=== PATIENT | female | born 1980 | race Caucasian/White ===

== ENCOUNTER 2024-06-11 02:59 | Day surgery (SDC) | payer BC, SELFPAY ==
--- NOTE | 2024-05-30 12:52 | PC.NURSE ---
Report to the Outpatient Waiting Room, entrance under the green pavilion located off [facility], at time ___6:15am____ on date ___[id number]____. Planned Procedure Time: 8:15am___.? Time changes happen often and if your time is changed the preop area will call you the afternoon before. - You and your visitor will be asked to self-screen and do not enter if you have any COVID symptoms. Please call surgeon if you need to reschedule. - A mask is optional within the hospital at this time. Patients may have clear liquids (water, carbonated beverages, clear teas, apple juice) until 3 hours prior to surgery with a maximum of 20 ounces. - No food from midnight until time of surgery and no smoking. This includes no chewing gum, candy or mints. Take only the following medications with a SIP of water on the morning of surgery: n/a DO NOT STOP ANY OF YOUR OTHER PRESCRIPTION MEDICATIONS PRIOR TO SURGERY EXCEPT THE FOLLOWING Medications to discontinue per physician Do not take metformin morning of surgery (taken for PCOS) Please no make-up, nail lithuanian, hairspray, perfume, deodorant, or body powder the day of surgery.? No jewelry (including any body piercings) or valuables the day of surgery, leave them at home.? Please take a shower or bath the night before, or the morning of, surgery with an antibacterial soap.? Wear comfortable, loose fitting clothing.? - Jewelry must be removed prior to entering the operating room.? Rings and piercings that are not removed may be cut off. - The hospital will not accept responsibility for valuables.? - Please leave all valuables, including medications, at home the day of surgery. If you are going home after surgery, a licensed local company intermodal truck driver must drive you home.? - NO public transportation without another adult if you receive anesthesia. - We recommend that an adult stay with you for 24 hours following discharge. - We also recommend that you do not drive, make important decision, drink alcoholic beverages, or take any drugs that were not prescribed by your health care provider for at least 24 hours after your discharge time. Hold all vitamins and supplements for 3 days per anesthesiologist. (Take your last vitamin D dose on 02-04-2025) Follow any additional instructions given to you from your surgeon. Telephone instructions given to __Patient (Masha) and asked if any additional questions and then verbalized understanding. Patient advised to call surgeon office or pre surgery nurse liaison [phone] if any additional questions.
[2024-05-30 13:00] VITALS: BMI 43.5
--- OUTSIDE RECORDS SUMMARY | 2024-06-11 03:03 | XMS_ITS | Clinical Summary ---
Author Organization [facility] [employer] Address [address] [place] [address] Care Team Providers Care Banquet Director Name Role Phone Masha Shah MD Primary Care Provider [phone] Source Comments [facility] [employer],non-owned Affiliates and Associated Physician Practices is amultiple site organization consisting of ambulatory clinics and hospital sitesin [place], [place], [place] and [place]. This disclosure is being madepursuant to the Care Everywhere program and may not contain all information available regarding this patient. Last updated 18.[facility] [employer] Allergies No known active allergies Medications * Be aware that medications may not be up to date on this document. Alwaysverify current medications with the patient. Medication Sig Dispensed Refills Start Date End Date Status oxyCODONE, immediate release, (Roxicodone) 5 MG tabletIndications :Right ovarian cyst Take 1 (one) tablet by mouth every 6 hours as needed 12 tablet 06/08/2023 Active Additional Information Patient not taking.Reported on 06/29/2023 ketorolac (Toradol) 10 MG tablet Take 1 (one) tablet by mouth every 6 hours as needed for Pain 12 tablet 06/08/2023 Active Additional Information Patient not taking.Reported on 06/29/2023 acetaminophen (Tylenol) 500 MG capsule Take 1 (one) capsule by mouth every 4 hours as needed for Fever or Pain 30 capsule 06/08/2023 Active Additional Information Patient not taking.Reported on 06/29/2023 acetaminophen (Tylenol) 325 MG tablet Take 2 (two) tablets by mouth every 6 hours as needed for Fever or Pain Maximum allowable Acetaminophen amount = 4 Grams (4000 mg) / 24 hours. 40 tablet 06/10/2023 Active Additional Information Patient not taking.Reported on 06/29/2023 ibuprofen (Motrin) 600 MG tablet Take 1 (one) tablet by mouth every 6 hours as needed for Pain 40 tablet 06/10/2023 Active Additional Information Patient not taking.Reported on 06/29/2023 Active Problems Problem Noted Date Diagnosed Date Right ovarian cyst 06/07/2023 Social History Tobacco Use Types Packs/Day Years Used Date Smoking Tobacco: Unknown PHQ-2 Answer Date Recorded Patient Health Questionnaire-2 Score 0 06/22/2023 Sex and Gender Information Value Date Recorded Sex Assigned at Not on file Gender Identity Not on file Sexual Orientation Not on file Last Filed Vital Signs Vital Sign Reading Time Taken Comments Blood Pressure 120/80 06/29/2023 1:41 PM HAND PROFILER Pulse 74 06/10/2023 5:17 PM [facility] PROF[facility] Temperature 36.8 C (98.2 F) 06/10/2023 1:55 PM [facility] PROF[facility]ER Respiratory Rate 20 06/10/2023 4:10 PM HAND PROFILER Oxygen Saturation 98% 06/10/2023 5:17 PM HAND PROFILER Inhaled Oxygen Concentration - - Weight 123.4 kg (272 lb) 06/29/2023 1:41 PM HAND PROFILER Height 167.6 cm (5' 6 ) 06/29/2023 1:41 PM HAND PROFILER Body Mass Index 43.9 06/29/2023 1:41 PM HAND PROFILER Plan of Treatment Health Maintenance Due Date Last Done Comments LIPID TESTING 1980 MAMMOGRAM 1980 PAP SMEAR 1980 HIV SCREENING 01/24/1995 HEPATITIS C SCREENING 01/20/1998 DTAP/TDAP/TD VACCINES (1 - Tdap) 01/24/1999 HEPATITIS B VACCINE (1 of 3 - 19+ 3-dose series) 01/24/1999 COVID-19 VACCINE ( - 2023-2 5 season) 2024 INFLUENZA VACCINE (#1) 2024 DEPRESSION SCREENING 05/02/2024 06/29/2023 SCREENING FOR DIABETES 06/07/2026 06/07/2023 ZOSTER VACCINE (1 of 2) 01/24/2030 HIB VACCINE Aged Out No longer eligi ble based on patient's age to complete this topic HPV VACCINE Aged Out No longer eligi ble based on patient's age to complete this topic MENINGOCOCCAL (Group B) VACCINE Aged Out No longer eligible based on patient's age to complete this topic MENINGOCOCCAL VACCINE Aged Out No mireya melissa eligible based on patient's age to complete this topic PNEUMOCOCCAL VACCINE Aged Out No long er eligible based on patient's age to complete this topic Procedures Procedure Name Priority Date/Time Associated Diagnosis Comments COMPREHENSIVE METABOLIC PANEL STAT 06/07/2023 8:57 PM HAND PROFILER from Last 3 Months or Most Recently Relevant to Health Maintenance Results * COMPREHENSIVE METABOLIC PANEL (06/07/2023 8:57 PM HAND PROFILER) [facility] Glucose 83 70 - 105 mg/dL 06/07/2023 9:16 PM [facility] Sodium 139 136 - 145 mmol/L 06/07/2023 9:16 PM [facility] Potassium 3.8 3.5 - 5.1 mmol/L 06/07/2023 9:16 PM [facility] Chloride 105 98 - 107 mmol/L 06/07/2023 9:16 PM [facility] CO2 23 22 - 29 mmol/L 06/07/2023 9:16 PM [facility] Calcium 9.1 8.4 - 10.4 mg/dL 06/07/2023 9:16 PM [facility] Anion Gap 11 6 - 16 mmol/L 06/07/2023 9:16 PM [facility] BUN 9 5.3 - 18.7 mg/dL 06/07/2023 9:16 PM [facility] Creatinine 0.77 0.57 - 1.11 mg/dL 06/07/2023 9:16 PM HAND PROFILER [facility] Alkaline Phosphatase 70 40 - 150 U/L 06/07/2023 9:16 PM HAND PROFILER [facility] ALT 22 0 - 55 U/L 06/07/2023 9:16 PM [facility] PROFILER [facility] AST 20 5 - 34 U/L 06/07/2023 9:16 PM [facility] Protein Total 8.0 6.4 - 8.3 gm/dL 06/07/2023 9:16 PM [facility] Albumin 4.1 3.4 - 5.0 gm/dL 06/07/2023 9:16 PM [facility] Bilirubin Total 0.8 0.2 - 1.2 mg/dL 06/07/2023 9:16 PM [facility] PROFILER [facility] eGFR by CKD-EPI >90 >=90 mL/min/1.7 3 m2 06/07/2023 9:16 PM [facility] PROFILER [facility] Blood BLOOD SPECIMEN / Unknown Venipuncture / Unknown 06/07/2023 8:57 PM HAND PROFILER 06/07/2023 8:57 PM [facility]ER Belkis Blum MD LAB - CHEMISTRY O RDERABLES [facility] [address] [place] [address] from Last 3 Months or Most Recently Relevant to Health Maintenance Advance Directives * Full Code (Latest Code Status on File) Date Activated Date Inactivated Comments 06/08/2023 12:44 AM 06/08/2023 2:07 PM Care Teams Banquet Director Relationship Specialty Start Date End Date Masha Shah MD [address] MATTHEW Anand [phone] PCP - General Family Medicine 06/29/23
--- OUTSIDE RECORDS SUMMARY | 2024-06-11 03:03 | XMS_ITS | Clinical Summary ---
Author Organization [facility] Address [address] [place] [address] Phone Care Team Providers Care Plant Electrical Engineer Name Role Phone Unavailable Primary Care Provider Unavailabl e Allergies No known active allergies Medications ketorolac tromethamine (TORADOL) 10 mg tablet Take 1 Tablet (10 mg) by mouth every 6 hours as needed for Pain. 15 Tablet 4 Active acetaminophen (TYLENOL) 500 mg tablet Take 2 Tablets (1,000 mg) by mouth every 6 hours as needed for Pain. 20 Tablet 4 Active ondansetron (ZOFRAN ODT) 4 mg Tablet, Rapid Dissolve Take 1 Tablet (4 mg) by mouth every 8 hours as needed for Nausea/Emesis . Dissolve tablet on top of tongue, then swallow with saliva. 20 Tablet 4 Active Encounters Date Type Department Care Team Description 06/05/2024 External Device Data [facility] ABSTRACTION Provider, Abstract 05/24/2024 External Device Data [facility]STRACTION Provider, Abstract 05/15/2024 External Device Data [facility]CTION Provider, Abstract 05/15/2024 External Device Data [facility] Provider, Abstract 05/08/2024 External Device Data [facility]CTION Provider, Abstract 04/17/2024 External Device Data [facility]CTION Provider, Abstract 04/16/2024 9:41 AM SALES CONSULTANT - 04/16/2024 1:04 PM SALES CONSULTANT Emergency [facility] Emergency Department [address] [place] [address] Uterine leiomyoma, unspecified location (Primary Dx) Discharge Disposition: Home or Self Care 04/16/2024 Travel from Last 3 Months Social History Tobacco Use Types Packs/Day Years Used Date Smoking Tobacco: Never Assessed Feeling Safe Answer Date Recorded Are you in a relationship wi th someone who hurts you emotionally and/or physically? No 04/16/2024 Comments Unknown Sex and Gender Information Value Date Recorded Sex Assigned at Not on file Legal Sex Female 9:32 AM SALES CONSULTANT Gender Identity Not on file Sexual Orientation Not on file Last Filed Vital Signs Vital Sign Reading Time Taken Comments Blood Pressure 161/101 04/16/2024 9:45 AM SALES CONSULTANT Pulse 87 04/16/2024 9:45 AM SALES CONSULTANT Temperature 36.9 C (98.5 F) 04/16/2024 9:34 AM SALES CONSULTANT Respiratory Rate 20 04/16/2024 9:45 AM SALES CONSULTANT Oxygen Saturation 99% 04/16/2024 9:45 AM SALES CONSULTANT Inhaled Oxygen Concentration - - Weight 113.4 kg (250 lb) 04/16/2024 9:34 AM SALES CONSULTANT Height 167.6 cm (5' 6 ) 04/16/2024 9:34 AM SALES CONSULTANT Body Mass Index 40.35 04/16/2024 9:34 AM SALES CONSULTANT Plan of Treatment Health Maintenance Due Date Last Done Comments Pre-Diabetes and Diabetes Screening 1980 DTAP/TDAP/TD VACCINES (1 - Tdap) 01/24/1999 HEPATITIS B VACCINES (1 of 3 - 19+ 3-dose series) 01/24/1999 CERVICAL CANCER SCREENING 01/24/2010 BREAST CANCER SCREENING 2020 INFLUENZA VACCINE (#1) 2023 HPV VACCINES Aged Out No longer eligi ble based on patient's age to complete this topic Procedures Procedure Name Priority Date/Time Associated Diagnosis Comments CT ABDOMEN PELVIS W CONTRAST Stat 04/16/2024 11:52 AM SALES CONSULTANT EXTRA TUBE (URINE CESAR) Stat 04/16/2024 10:50 AM SALES CONSULTANT URINALYSIS W/REFLEX MICROSCOPIC Stat 04/16/2024 10:50 AM SALES CONSULTANT LIPASE Stat 04/16/2024 9:40 AM SALES CONSULTANT HCG QUALITATIVE, SERUM Stat 9:40 AM SALES CONSULTANT EXTRA TUBE (SST/GOLD) Stat 04/16/2024 9:40 AM SALES CONSULTANT EXTRA TUBE Stat 04/16/2024 9:40 AM SALES CONSULTANT COMPREHENSIVE METABOLIC PANEL Stat 04/16/2024 9:40 AM SALES CONSULTANT CBC WITH DIFFERENTIAL Stat 04/16/2024 9:40 AM SALES CONSULTANT from Last 3 Months Results * CT ABDOMEN PELVIS W CONTRAST (04/16/2024 11:52 AM SALES CONSULTANT) Anatomical Region Laterality Modality Abdomen Computed Tomogra phy 04/16/2024 11:5 3 AM SALES CONSULTANT Impressions 04/16/2024 12:05 PM SALES CONSULTANT IMPRESSION: 1. No acute process identified in the abdomen or pelvis. 2. Uterine fibroids. Hepatic steatosis and splenomegaly. DICTATION LOCATION: Location [address] [place] [address] 04/16/2024 12:05 PM SALES CONSULTANT EXAMINATION: CT ABDOMEN PELVIS W CONTRAST DATE: 04/16/2024 11:52 AM HISTORY: Right sided abdominal pain, right flank pain. History of 18 cm right sided cyst; See Reason for Exam TECHNIQUE: CT of the abdomen and pelvis was performed following the uneventful administration of contrast (IOPAMIDOL 76 % INTRAVENOUS SOLUTION (MULTI-DOSE BULK PACK) Given:80 mL) according to standard protocol. The examination was performed with the adjustment of mA according to the patient size and/or the use of Iterative Reconstruction Technique. COMPARISON: No prior study is available for comparison at the time of this dictation. FINDINGS: The aorta is normal in caliber. The visible lung bases are clear. The heart size is normal. The liver is diffusely hypoattenuating consistent with diffuse hepatic steatosis. Otherwise the liver enhances homogeneously. The gallbladder appears normal. The bile ducts are nondilated. The spleen is enlarged and enhances homogeneously. The pancreas and adrenal glands are normal. A renal cyst is noted. There is no evidence of renal calculus or hydronephrosis. The distal esophagus and stomach appear normal. There is no evidence of bowel wall thickening or obstruction. The appendix appears normal. No free air or free fluid is identified within the abdomen. There is no abdominopelvic lymphadenopathy. There is a fat-containing umbilical hernia. The urinary bladder appears normal. No free fluid is seen in the pelvis. There are large uterine fibroids. No suspicious bone lesion is seen. No acute fracture is identified. Degenerative changes are noted in the spine. Procedure Note Duong Jean Baptiste MD - 04/16/2024 EXAMINATION: CT ABDOMEN PELVIS W CONTRAST DATE: 04/16/2024 11:52 AM HISTORY: Right sided abdominal pain, right flank pain. History of 18 cm right sided cyst; See Reason for Exam TECHNIQUE: CT of the abdomen and pelvis was performed following the uneventful administration of contrast (IOPAMIDOL 76 % INTRAVENOUS SOLUTION (MULTI-DOSE BULK PACK) Given:80 mL) according to standard protocol. The examination was performed with the adjustment of mA according to the patient size and/or the use of Iterative Reconstruction Technique. COMPARISON: No prior study is available for comparison at the time of this dictation. FINDINGS: The aorta is normal in caliber. The visible lung bases are clear. The heart size is normal. The liver is diffusely hypoattenuating consistent with diffuse hepatic steatosis. Otherwise the liver enhances homogeneously. The gallbladder appears normal. The bile ducts are nondilated. The spleen is enlarged and enhances homogeneously. The pancreas and adrenal glands are normal. A renal cyst is noted. There is no evidence of renal calculus or hydronephrosis. The distal esophagus and stomach appear normal. There is no evidence of bowel wall thickening or obstruction. The appendix appears normal. No free air or free fluid is identified within the abdomen. There is no abdominopelvic lymphadenopathy. There is a fat-containing umbilical hernia. The urinary bladder appears normal. No free fluid is seen in the pelvis. There are large uterine fibroids. No suspicious bone lesion is seen. No acute fracture is identified. Degenerative changes are noted in the spine. IMPRESSION: 1. No acute process identified in the abdomen or pelvis. 2. Uterine fibroids. Hepatic steatosis and splenomegaly. DICTATION LOCATION: [address] Radha Collado NP CT ORDERABLES Final Res ult * EXTRA TUBE (URINE CESAR) (04/16/2024 10:50 AM SALES CONSULTANT) Urine URINE SPECIMEN OBTAINED BY CLEAN CATCH PROCEDURE / Unknown Collection / Unknown 04/16/2024 10:50 AM SALES CONSULTANT 04/16/2024 10:57 AM SALES CONSULTANT us Protocol [facility] Emergency MD URINE ORDERABLES Shoshana jimenez Result [facility] CLIA# [id number] [place] [address] * (ABNORMAL) URINALYSIS WITH REFLEX MICROSCOPIC (04/16/2024 10:50 AM SALES CONSULTANT) COLOR UA Yellow Pale to Dark Yellow 04/16/2024 11:16 AM [facility] [employer] [facility] CLARITY UA Slightly Cloudy(A) Clear 04/16/2024 11:16 AM [facility] SPECIFIC GRAVITY UA 1.023 1.003 - 1.035 04/16/2024 11:16 AM [facility] [employer] [facility] PH UA 7.0 5.0 - 8.0 04/16/2024 11:16 AM [facility] [employer] [facility] LEUKOCYTE ESTERASE UA Negative Negative 04/16/2024 11:16 AM [facility] [employer] [facility] NITRITE UA Negative Negative 04/16/2024 11:16 AM [facility] [employer] [facility] PROTEIN UA 1+(A) Negative 04/16/2024 11:16 AM [facility] [employer] [facility] GLUCOSE UA Negative Negative 04/16/2024 11:16 AM [facility] [employer] [facility] KETONES UA Negative Negative 04/16/2024 11:16 AM [facility] [employer] [facility] UROBILINOGEN UA Normal <2.0 mg/dL 11:16 AM [facility] [employer] [facility] BILIRUBIN UA Negative Negative 04/16/2024 11:16 AM [facility] [employer] [facility] BLOOD UA Negative Negative 04/16/2024 11:16 AM [facility] [employer] [facility] WBC UA 0-2 0 - 2 /hpf 04/16/2024 11:16 AM [facility] [employer] [facility] RBC UA 0-2 0 - 2 /hpf 04/16/2024 11:16 AM SALES CONSULTANT [facility] [employer] [facility] BACTERIA UA 1+(A) Negative /hpf 04/16/2024 11:16 AM SALES CONSULTANT [facility] EPITHELIAL CELLS, URINE 0-5 0 - 5 /hpf 04/16/2024 11:16 AM SALES CONSULTANT [facility] HYALINE CAST None Seen None Seen, 0-2 /lpf 04/16/2024 11:16 AM SALES CONSULTANT [facility] Urine URINE SPECIMEN OBTAINED BY CLEAN CATCH PROCEDURE / Unknown Collection / Unknown 04/16/2024 10:50 AM SALES CONSULTANT 04/16/2024 10:57 AM SALES CONSULTANT us Protocol [facility] Emergency MD URINE ORDERABLES Shoshana l Result [facility] CLIA# [id number] [place] [address] * EXTRA TUBE (SST/GOLD) (04/16/2024 9:40 AM SALES CONSULTANT) Blood Venipuncture / Unknown 04/16/2024 9:40 AM SALES CONSULTANT 04/16/2024 9:47 AM SALES CONSULTANT us Protocol [facility] Emergency CHEMISTRY ORDERABLES Final Result Performing Organization Address [facility]/ZIP Co de Phone Number [facility] CLIA# [id number] [place] [address] * HCG QUALITATIVE, BLOOD (04/16/2024 9:40 AM SALES CONSULTANT) HCG QUAL, BLOOD Negative Negative, Indeterminate 04/16/2024 10:50 AM SALES CONSULTANT [facility] Blood Venipuncture / Unknown 04/16/2024 9:40 AM SALES CONSULTANT 04/16/2024 9:47 AM SALES CONSULTANT us Radha Collado TRANSFER COORDINATOR CHEMISTRY ORDERABLES Shoshana l Result [facility] CLIA# [id number] [place] [address] * (ABNORMAL) CBC WITH DIFFERENTIAL (04/16/2024 9:40 AM SALES CONSULTANT) [facility] WBC 10.7(H) 4.0 - 9.8 K/uL 04/16/2024 9:46 AM SALES CONSULTANT [facility] RBC 5.06(H) 3.90 - 4.90 M/uL 04/16/2024 9:46 AM [facility] HEMOGLOBIN 12.7 11.8 - 14.8 g/dL 04/16/2024 9:46 AM SALES CONSULTANT [facility] HEMATOCRIT 40.3 35.5 - 44.0 % 04/16/2024 9:46 AM SALES CONSULTANT [facility] MCV 79.6(L) 82.0 - 99.0 fL 04/16/2024 9:46 AM SALES CONSULTANT [facility] MCH 25.1(L) 27.2 - 32.6 pg 04/16/2024 9:46 AM [facility] [employer] [facility] MCHC 31.5 31.5 - 35.5 g/dL 04/16/2024 9:46 AM SALES CONSULTANT [facility] [employer] [facility] RDW 14.6(H) 11.5 - 14.5 % 04/16/2024 9:46 AM [facility] [employer] [facility] RDW-STDEV 42.0 37.1 - 48.7 fL 04/16/2024 9:46 AM SALES CONSULTANT [facility] PLATELETS 294 140 - 350 K/uL 04/16/2024 9:46 AM SALES CONSULTANT [facility] MPV 9.6 9.3 - 12.4 fL 04/16/2024 9:46 AM SALES CONSULTANT [facility] NEUTROPHILS 83 % 04/16/2024 9:46 AM SALES CONSULTANT [facility] LYMPHOCYTES 12 % 04/16/2024 9:46 AM SALES CONSULTANT [facility] MONOCYTES 3 % 04/16/2024 9:46 AM SALES CONSULTANT [facility] EOSINOPHILS 1 % 04/16/2024 9:46 AM SALES CONSULTANT [facility] BASOPHILS 1 % 04/16/2024 9:46 AM SALES CONSULTANT [facility] IMMATURE GRANULOCYTES 0 % 04/16/2024 9:46 AM SALES CONSULTANT [facility] NEUTROPHIL ABSOLUTE 8.90(H) 1.90 - 7.00 K/uL 04/16/2024 9:46 AM SALES CONSULTANT [facility] LYMPHOCYTE ABSOLUTE 1.24 0.70 - 4.50 K/uL 04/16/2024 9:46 AM SALES CONSULTANT [facility] MONOCYTE ABSOLUTE 0.33 0.10 - 1.30 K/uL 04/16/2024 9:46 AM SALES CONSULTANT [facility] EOSINOPHIL ABSOLUTE 0.11 0.00 - 0.70 K/uL 04/16/2024 9:46 AM SALES CONSULTANT [facility] - [facility] BASOPHILS ABSOLUTE 0.08 0.00 - 0.20 K/uL 04/16/2024 9:46 AM SALES CONSULTANT [facility] IMMATURE GRANULOCYTES ABSOLUTE 0.04(H) 0.00 - 0.03 K/uL 04/16/2024 9:46 AM SALES CONSULTANT [facility] Blood Venipuncture / Unknown 04/16/2024 9:40 AM SALES CONSULTANT 04/16/2024 9:46 AM SALES CONSULTANT Protocol [facility] Emergency MD HEMATOLOGY ORDERABLES Final Result [facility] CLIA# [id number] [place] [address] * LIPASE (04/16/2024 9:40 AM SALES CONSULTANT) LIPASE 17 13 - 60 U/L 04/16/2024 10:14 AM SALES CONSULTANT [facility] Blood Venipuncture / Unknown 04/16/2024 9:40 AM SALES CONSULTANT 04/16/2024 9:43 AM SALES CONSULTANT us Radha Collado TRANSFER COORDINATOR CHEMISTRY ORDERABLES Shoshana l Result [facility] CLIA# [id number] [place] [address] * (ABNORMAL) COMPREHENSIVE METABOLIC PANEL (04/16/2024 9:40 AM SALES CONSULTANT) [facility] SODIUM 142 136 - 145 mmol/L 04/16/2024 10:14 AM [facility] [employer] [facility] POTASSIUM 4.4 3.4 - 5.1 mmol/L 04/16/2024 10:14 AM [facility] [employer] [facility] CHLORIDE 107 98 - 107 mmol/L 04/16/2024 10:14 AM [facility] [employer] [facility] CO2 20(L) 22 - 29 mmol/L 04/16/2024 10:14 AM [facility] [employer] [facility] CALCIUM 9.3 8.6 - 10.4 mg/dL 04/16/2024 10:14 AM [facility] [employer] [facility] BUN 13 6 - 20 mg/dL 04/16/2024 10:14 AM [facility] [employer] [facility] CREATININE 0.78 0.51 - 0.95 mg/dL 04/16/2024 10:14 AM [facility] [employer] [facility] GLUCOSE 136(H) 74 - 99 mg/dL 04/16/2024 10:14 AM [facility] [employer] [facility] TOTAL PROTEIN 7.6 6.3 - 8.7 g/dL 04/16/2024 10:14 AM [facility] [employer] [facility] ALBUMIN 4.2 3.5 - 5.2 g/dL 04/16/2024 10:14 AM [facility] [employer] [facility] BILIRUBIN TOTAL 0.4 0.3 - 1.2 mg/dL 04/16/2024 10:14 AM [facility] [employer] [facility] ALKALINE PHOSPHATASE 93 40 - 150 U/L 04/16/2024 10:14 AM [facility] [employer] [facility] AST 19 0 - 33 U/L 04/16/2024 10:14 AM [facility] [employer] [facility] ALT 13 0 - 33 U/L 04/16/2024 10:14 AM [facility] [employer] [facility] GFR >60 >=60 mL/min/1.7 3 sq meter 04/16/2024 10:14 AM [facility] Comment:eGFR calculated with 2020 CKD-EPI equation. Vegetarian diet, extremely high or low muscle mass, and may affect results. Cystatin C with Glomerular Filtration Rate is a suitable alternative for these patients. ANION GAP 15 8 - 16 mmol/L 04/16/2024 10:14 AM SALES CONSULTANT [facility] Blood Venipuncture / Unknown 04/16/2024 9:40 AM SALES CONSULTANT 04/16/2024 9:43 AM SALES CONSULTANT us Protocol [facility] Emergency MD CHEMISTRY ORDERABLES Final Result [facility] CLIA# [id number] [place] [address] from Last 3 Months Insurance [facility] [employer] [facility]
--- OUTSIDE RECORDS SUMMARY | 2024-06-11 03:03 | XMS_ITS | Encounter Summary ---
Author Organization [facility] Address [address] [place] [address] Care Team Providers Care In Service Educator Name Role Phone Masha Shah MD Primary Care Provider [phone] Reason for Visit * Reason Onset Date Comments Post-Op 06/13/2023 Appointment 06/13/2023 Encounter Details Date Type Department Care Team (Late st Contact Info) Description 06/13/2023 Telephone [facility] - SENIOR SYSTEMS ARCHITECT [address] [place] [address] Lottie Mancera MD [address] [place] [address] Post-Op; Appointment Social History Tobacco Use Types Packs/Day Years Used Date Smoking Tobacco: Never Assessed Sex and Gender Information Value Date Recorded Sex Assigned at Not on file Gender Identity Not on file Sexual Orientation Not on file documented as of this encounter Miscellaneous Notes * Telephone Encounter - Radha Clarke - 06/13/2023 8:56 AM CST Pt is calling to schedule her post op visit with Dr. Mancera. Pt had surgery on 06.10.23. [employer] documented in this encounter Plan of Treatment Not on file documented as of this encounter Visit Diagnoses Not on filedocumented in this encounter Care Teams In Service Educator Relationship Specialty Start Date End Date Masha Shah MD [address] [place] [address] MATTHEW Anand [phone] PCP - General Family Medicine 06/29/23 documented as of this encounter
--- OUTSIDE RECORDS SUMMARY | 2024-06-11 03:03 | XMS_ITS | Referral Summary ---
Author Organization [facility] Address [address] [place] [address] Care Team Providers Care Smoke Eater Name Role Phone Masha Shah MD Primary Care Provider [phone] Source Comments [facility],non-owned Affiliates and Associated Physician Practices is amultiple site organization consisting of ambulatory clinics and hospital sitesin [place], [place], [place] and [place]. This disclosure is being madepursuant to the Care Everywhere program and may not contain all information available regarding this patient. Last updated 18.[facility] Allergies No known active allergies Medications * [...] Comments Blood Pressure 120/80 06/29/2023 1:41 PM OIL TREATER Pulse 74 06/10/2023 5:17 PM OIL TREATER Temperature 36.8 C (98.2 F) 06/10/2023 1:55 PM OIL TREATER Respiratory Rate 20 06/10/2023 4:10 PM OIL TREATER Oxygen Saturation 98% 06/10/2023 5:17 PM OIL TREATER Inhaled Oxygen Concentration - - Weight 123.4 kg (272 lb) 06/29/2023 1:41 PM OIL TREATER Height 167.6 cm (5' 6 ) 06/29/2023 1:41 PM OIL TREATER Body Mass Index 43.9 06/29/2023 1:41 PM OIL TREATER Plan of Treatment Not on file Procedures Procedure Name Priority Date/Time Associated Diagnosis Comments COMPREHENSIVE METABOLIC PANEL STAT 06/07/2023 8:57 PM OIL TREATER from Last 3 Months or Most Recently Relevant to Health Maintenance Results * COMPREHENSIVE METABOLIC PANEL (06/07/2023 8:57 PM OIL TREATER) Pathologist [facility] Glucose 83 70 - 105 mg/dL 06/07/2023 9:16 PM OIL TREATER [facility] Sodium 139 136 - 145 mmol/L 06/07/2023 9:16 PM OIL TREATER [facility] Potassium 3.8 3.5 - 5.1 mmol/L 06/07/2023 9:16 PM OIL TREATER [facility] Chloride 105 98 - 107 mmol/L 06/07/2023 9:16 PM OIL TREATER [facility] CO2 23 22 - 29 mmol/L 06/07/2023 9:16 PM OIL TREATER [facility] Calcium 9.1 8.4 - 10.4 mg/dL 06/07/2023 9:16 PM OIL TREATER [facility] Anion Gap 11 6 - 16 mmol/L 06/07/2023 9:16 PM OIL TREATER [facility] BUN 9 5.3 - 18.7 mg/dL 06/07/2023 9:[address] [facility] Creatinine 0.77 0.57 - 1.11 mg/dL 06/07/2023 9:16 PM OIL TREATER [facility] Alkaline Phosphatase 70 40 - 150 U/L 06/07/2023 9:16 PM OIL TREATER [facility] ALT 22 0 - 55 U/L 06/07/2023 9:16 PM OIL TREATER [facility] AST 20 5 - 34 U/L 06/07/2023 9:[address] [facility] Protein Total 8.0 6.4 - 8.3 gm/dL 06/07/2023 9:[address] [facility] Albumin 4.1 3.4 - 5.0 gm/dL 06/07/2023 9:[address] [facility] Bilirubin Total 0.8 0.2 - 1.2 mg/dL 06/07/2023 9:[address] [facility] eGFR by CKD-EPI >90 >=90 mL/min/1.7 3 m2 06/07/2023 9:[address] [facility] Blood BLOOD SPECIMEN / Unknown Venipuncture / Unknown 06/07/2023 8:57 PM OIL TREATER 06/07/2023 8:57 PM OIL TREATER Belkis Blum MD LAB - CHEMISTRY O RDERABLES [facility] [address] [place] [address] from Last 3 Months or Most Recently Relevant to Health Maintenance Advance Directives * Full Code (Latest Code Status on File) Date Activated Date Inactivated Comments 06/08/2023 12:44 AM 06/08/2023 2:07 PM Care Teams Smoke Eater Relationship Specialty Start Date End Date Masha Shah MD [address] [place] [id number] PCP - General Family Medicine 06/29/23
--- OUTSIDE RECORDS SUMMARY | 2024-06-11 03:03 | XMS_ITS | Patient Health Summary ---
Author Organization [facility] Address [address] [place] [address] Care Team Providers Care Truck Driving Instructor Name Role Phone Masha Shah MD Primary Care Provider [phone] [facility],non-owned Affiliates and Associated Physician Practices is amultiple site organization consisting of ambulatory clinics and hospital sitesin [place], [place], [place] and [place]. This disclosure is being madepursuant to the Care Everywhere program and may not contain all information available regarding this patient. Last updated 18.[facility] Allergies No known active allergies Medications * Be aware that medications may not be up to date on this document. Alwaysverify current medications with the patient. * oxyCODONE, immediate release, (Roxicodone) 5 MG tablet(Started 06/08/2023) Take 1 (one) tablet by mouth every 6 hours as needed * ketorolac (Toradol) 10 MG tablet(Started 06/08/2023) Take 1 (one) tablet by mouth every 6 hours as needed for Pain * acetaminophen (Tylenol) 500 MG capsule(Started 06/08/2023) Take 1 (one) capsule by mouth every 4 hours as needed for Fever or Pain * acetaminophen (Tylenol) 325 MG tablet(Started 06/10/2023) Take 2 (two) tablets by mouth every 6 hours as needed for Fever or Pain Maximum allowable Acetaminophen amount = 4 Grams (4000 mg) / 24 hours. * ibuprofen (Motrin) 600 MG tablet(Started 06/10/2023) Take 1 (one) tablet by mouth every 6 hours as needed for Pain Active Problems Problem Noted Date Diagnosed Date [...] Comments Blood Pressure 120/80 06/29/2023 1:41 PM HEALTH COMMUNICATIONS SPECIALIST Pulse 74 06/10/2023 5:17 PM HEALTH COMMUNICATIONS SPECIALIST Temperature 36.8 C (98.2 F) 06/10/2023 1:55 PM HEALTH COMMUNICATIONS SPECIALIST Respiratory Rate 20 06/10/2023 4:10 PM HEALTH COMMUNICATIONS SPECIALIST Oxygen Saturation 98% 06/10/2023 5:17 PM HEALTH COMMUNICATIONS SPECIALIST Inhaled Oxygen Concentration - - Weight 123.4 kg (272 lb) 06/29/2023 1:41 PM HEALTH COMMUNICATIONS SPECIALIST Height 167.6 cm (5' 6 ) 06/29/2023 1:41 PM HEALTH COMMUNICATIONS SPECIALIST Body Mass Index 43.9 06/29/2023 1:41 PM HEALTH COMMUNICATIONS SPECIALIST Procedures * CARDIAC RHYTHM STRIP ORDER(Performed 06/14/2023) * PATHOLOGY TISSUE EXAM (STL)(Performed 06/10/2023) Performed for Diagnosis unknown * CYTOLOGY NON-DIRECTOR EQUIPMENT PANEL (STL)(Performed 06/10/2023) Performed for Diagnosis unknown * ENDOTRACHEAL TUBE NOTE(Performed 06/10/2023) * FL LAP,DIAGNOSTIC ABDOMEN(Performed 06/10/2023) Performed for Diagnosis unknown * HCG URINE QUAL POCT NOTIFICATION(Performed 06/10/2023) Performed for Pre-op examination * TYPE + SCREEN PANEL(Performed 06/10/2023) Performed for Pre-op examination * HCG URINE QUALITATIVE - POCT (IP) INTERFACED(Performed 06/10/2023) * CT OUTSIDE CONSULTATION(Performed 06/08/2023) Performed for Right ovarian cyst * CANCER ANTIGEN (CA) 19-9(Performed 06/07/2023) * CANCER ANTIGEN (CA)125 BLOOD(Performed 06/07/2023) * HCG BETA BLOOD QUANTITATIVE(Performed 06/07/2023) * CBC W AUTO DIFFERENTIAL(Performed 06/07/2023) * COMPREHENSIVE METABOLIC PANEL(Performed 06/07/2023) * TYPE + SCREEN PANEL(Performed 06/07/2023) * CEA BLOOD(Performed 06/07/2023) Results * CARDIAC RHYTHM STRIP ORDER (06/14/2023 5:13 PM HEALTH COMMUNICATIONS SPECIALIST) Narrative 06/14/2023 5:13 PM HEALTH COMMUNICATIONS SPECIALIST Ordered by an unspecified provider. Scanned Document CARDIAC SERVICES ORD ERABLES * PATHOLOGY TISSUE EXAM (STL) (06/10/2023 1:08 PM HEALTH COMMUNICATIONS SPECIALIST) Case Report Surgical Pathology Report Case: [id number] Authorizing Provider: Lottie Mancera MD Collected: 06/10/2023 01:08 PM Ordering Location: [facility] Received: 06/10/2023 02:10 PM Pathologist: Nuria Humphreys MD Specimen: Ovary 06/13/2023 9:03 AM HEALTH COMMUNICATIONS SPECIALIST [facility] Final Diagnosis Ovary, right, oophorectomy - Serous cystadenoma Fallopian tube, right, salpingectomy - No histopathologic abnormality 06/13/2023 9:03 AM HEALTH COMMUNICATIONS SPECIALIST [facility] Clinical History The patient is a 43-year-old woman with a pelvic mass. Operative procedure: right oophorectomy. 06/13/2023 9:03 AM HEALTH COMMUNICATIONS SPECIALIST [facility] Gross Description The specimen is identified with patient's name and date of . Received in formalin, specimen A, ovary is a fragmented cyst lining, the largest fragment is 17.0 x 5.0 x 2.0 cm and the total tissue aggregates to 17.0 x 8.0 x 2.0 cm. There is a fragment of possible fallopian tube, 7.0 cm long and 0.5 cm in diameter with possible fimbria. The tube serosa is purple-jefferson and congested with paratubal cysts. Sectioning shows unremarkable cut surfaces. The surface of the cyst lining pink-jefferson jefferson to white-jefferson, glistening with focal congestion. Additionally, there are multiloculated cysts with clear, thin fluid within the wall. The cyst lining is pink-jefferson with fibrous adhesions and focal yellow-jefferson exudate less than 5% of the surface. Possible ovarian parenchyma, 1.0 x 0.5 cm, is identified and is white-jefferson homogenous. Customer Service Sales Associate sections are submitted as follows: A1-tube, A2-possible ovary, A3-A8-cyst lining (A3-cystic area, A4-with yellow-jefferson exudate). RB 06/13/2023 9:03 AM [facility] Microscopic Description Microscopic examination substantiates the above diagnosis. 06/13/2023 9:03 AM [facility] Pathologist Location at [facility] 06/13/2023 9:03 AM [facility] Disclaimer All histochemical and/or immunohistochemical results are interpreted with controls that demonstrate appropriate staining reactions before reporting results. Note on use of immunocytochemistry reagents: This test was developed and its performance characteristic determined by [facility], Department of Laboratory Medicine. It has not been cleared or approved by the U.S. Food and Drug Administration (FDA). The FDA has determined that such clearance or approval is not necessary. The test is used for clinical purpose. It should not be regarded as investigational or for research. This laboratory is certified to perform high complexity testing. The performance characteristics of the IHC/RIZWAN assays have been validated on formalin-fixed paraffin embedded tissues only. The assays have not been validated on decalcified tissues. Results should be interpreted with caution. 06/13/2023 9:03 AM [facility] Embedded Images 06/13/2023 9:03 AM [facility] Pathology/Cytolo gy ENTIRE OVARY / Unknown 06/10/2023 1:08 PM HEALTH COMMUNICATIONS SPECIALIST 06/10/2023 2:10 PM HEALTH COMMUNICATIONS SPECIALIST Comment:Pre-op diagnosis: Diagnosis unknown [R69] Lottie Mancera MD LAB - PATHOLOGY/CYTO LOGY ORDERABLES Performing Organization Address City/State/[facility] Co de Phone Number [facility] [address] [place] [address] [phone] * CYTOLOGY NON-DIRECTOR EQUIPMENT PANEL (STL) (06/10/2023 12:38 PM HEALTH COMMUNICATIONS SPECIALIST) Case Report Cytology Non Inspecting Supervisor Report Case: [id number] Authorizing Provider: Lottie Mancera MD Collected: 06/10/2023 12:38 PM Ordering Location: [facility] Received: 06/10/2023 02:14 PM Pathologist: Truong Oliva MD Specimen: Pelvic Washings 06/13/2023 9:26 AM HEALTH COMMUNICATIONS SPECIALIST [facility] Final Diagnosis Pelvic washing: - Sparse bland mesothelium - No carcinoma identified 06/13/2023 9:26 AM [facility] Clinical History Right ovarian cyst 06/13/2023 9:26 AM [facility] Gross Description 45 mL of clear fluid is received. A Pap-stained ThinPrep slide and H&E-stained cell block sections are produced. GRW 06/13/2023 9:26 AM [facility] Microscopic Description In a Pap-stained ThinPrep slide as well as H&E-stained cell block sections, there are scattered mesothelial cells that appear somewhat suboptimally preserved. No large cohesive aggregates of malignant-appearing epithelium are identified. 06/13/2023 9:26 AM [facility] Pathologist Location at [facility] 06/13/2023 9:26 AM [facility] Disclaimer All histochemical and/or immunohistochemical results are interpreted with controls that demonstrate appropriate staining reactions before reporting results. Note on use of immunocytochemistry reagents: This test was developed and its performance characteristic determined by [facility], Department of Laboratory Medicine. It has not been cleared or approved by the U.S. Food and Drug Administration (FDA). The FDA has determined that such clearance or approval is not necessary. The test is used for clinical purpose. It should not be regarded as investigational or for research. This laboratory is certified to perform high complexity testing. The performance characteristics of the IHC/RIZWAN assays have been validated on formalin-fixed paraffin embedded tissues only. The assays have not been validated on decalcified tissues. Results should be interpreted with caution. 06/13/2023 9:26 AM [facility] Embedded Images 06/13/2023 9:26 AM [facility] Pathology/Cytolo gy SPECIMEN OBTAINED BY PERITONEAL LAVAGE / Unknown 06/10/2023 12:38 PM HEALTH COMMUNICATIONS SPECIALIST 06/10/2023 2:14 PM HEALTH COMMUNICATIONS SPECIALIST Comment:Pre-op diagnosis: Diagnosis unknown [R69] Lottie Mancera MD LAB - PATHOLOGY/CYTO LOGY ORDERABLES [facility] [address] [place] [address] * ETT LINE PERFORMABLE (06/10/2023 12:23 PM HEALTH COMMUNICATIONS SPECIALIST) Narrative Kvng Fernando TRAMAINE Rey - 06/10/2023 12:23 PM HEALTH COMMUNICATIONS SPECIALIST Kvng Fernando TRAMAINE Rey 06/10/2023 12:24 PM Endotracheal Tube Placement: Patient Location: OR. Intubation Event Date/Time: 06/10/2023 12:12 PM Procedure: intubation ([id number]). Procedure Section: Sedation: under general anesthesia. Indications for Airway Management: anesthesia Induction: standard IV Patient Position: sniffing Mask Ventilation: easy. Blade Type: Video (glidescope size3) Blade Size: 3 Laryngoscopy View: grade 1 (full cords) Intubation Adjuncts: stylet Tube: endotracheal tube Placement: oral Measured From: lips Cuff Inflated With: air Number of Attempts: 1. Placement Verified By: direct visualization, bilateral breath sounds, CO2 monitor and chest auscultation CXR Findings: ETT in proper place. Tube secured with: adhesive tape. Dentition unchanged? Yes Difficult Airway? No. Procedure Start Time: 06/10/2023 12:12 PM. Staff Section Anesthesia Provider: Fernando Calderon APRN-CRNA, Performed the procedure Provider #1: Darren Li DO. Additional Comments: atraumatic, teeth lips gums at baseline. Darren Li DO GENERAL ANESTHESIA O RDERABLES * HCG URINE QUAL POCT NOTIFICATION (06/10/2023 10:01 AM HEALTH COMMUNICATIONS SPECIALIST) Comment Notification Label Only - See Separate Report 06/10/2023 10:01 AM HEALTH COMMUNICATIONS SPECIALIST [facility] Urine URINE / Unknown 8:38 AM HEALTH COMMUNICATIONS SPECIALIST Lottie Mancera MD LAB - URINALYSIS ORD ERABLES [facility] [address] [place] [address] * TYPE + SCREEN PANEL (06/10/2023 9:17 AM HEALTH COMMUNICATIONS SPECIALIST) Only the most recent of2 resultswithin the time period is included. ABO Rh A POS 06/10/2023 10:11 AM HEALTH COMMUNICATIONS SPECIALIST [facility] Comment:History checked. Antibody Screen NEG 10:11 AM HEALTH COMMUNICATIONS SPECIALIST [facility] Blood Bank BLOOD SPECIMEN / Unknown Venipuncture / Unknown 06/10/2023 9:17 AM HEALTH COMMUNICATIONS SPECIALIST 06/10/2023 9:23 AM HEALTH COMMUNICATIONS SPECIALIST Lottie Mancera MD LAB - BLOOD BANK ORD ERABLES Performing Organization Address City/[facility] Co de Phone Number [facility] [address] [place], [place] [id number] [place] [address] * HCG URINE QUALITATIVE - POCT (IP) INTERFACED (06/10/2023 8:52 AM HEALTH COMMUNICATIONS SPECIALIST) Pathologist [facility] [place] HCG Qual Urine Negative Negative 06/10/2023 8:58 AM HEALTH COMMUNICATIONS SPECIALIST [facility] Urine URINE / Unknown 06/10/2023 8 :52 AM HEALTH COMMUNICATIONS SPECIALIST 06/10/2023 8:58 AM HEALTH COMMUNICATIONS SPECIALIST Lottie Mancera MD LAB - POINT OF CARE ORDERABLES Performing Organization Address [facility] Co de Phone Number [facility] [address] [place] [address] * CT OUTSIDE CONSULTATION (06/08/2023 8:44 AM HEALTH COMMUNICATIONS SPECIALIST) Anatomical Region Laterality Modality Computed Tomogra phy 06/08/2023 10:5 2 AM HEALTH COMMUNICATIONS SPECIALIST Narrative 06/08/2023 1:00 PM HEALTH COMMUNICATIONS SPECIALIST PROCEDURE: CT OUTSIDE CONSULTATION, DATE/TIME OF EXAM: 06/08/2023 8:45 AM, LOCATION [facility] INDICATION: N83.201: Unspecified ovarian cyst, right side ADDITIONAL CLINICAL INFORMATION: Ordering Provider Reason For Exam: Technologist Note: Additional: COMPARISON: None. TECHNIQUE: CT of the abdomen and pelvis was performed following the uneventful administration of 100 mL of Isovue 370 intravenous contrast according to standard protocol. Findings: Lower Chest: Normal. Liver: There is fatty enlargement of the liver. No focal hepatic lesion is seen. The hepatic and portal veins enhance normally. Gallbladder and Bile Ducts: Normal. Spleen: The spleen is enlarged and measures approximately 15.4 cm in coronal dimensions. No focal splenic lesion is seen. Pancreas: Normal. Adrenals: Normal. Kidneys: There is a hypodense lesion in the upper pole of the left kidney suggesting a renal cyst. This has fluid attenuation on postcontrast imaging. The kidneys and visualized ureters and bladder are otherwise normal. Gastrointestinal: The stomach and visualized loops of large and small bowel are unremarkable. Normal appendix. Mesentery/Peritoneum/Retroperitoneum: Small periaortic retroperitoneal and pelvic lymph nodes are present without significant adenopathy. There are small mesenteric cysts with mild soft tissue stranding in the root of the small bowel mesentery. Reproductive Organs: The uterus is enlarged and measures approximately 16.4 cm in sagittal dimensions and 11.7 cm in anterior posterior dimensions. There are complex and partially enhancing lesions within the left body of the uterus, lower uterine segment, as well as pedunculated subserosal fibroids. The largest of these measures approximately 7.6 x 9.3 cm. The endometrium appears grossly normal in appearance and thickness. Two right pelvic cystic structures versus a septated cystic lesion are present, the largest of the 2 measuring 17.1 x 11.5 cm in axial dimensions and 14.2 x 15.3 cm in coronal dimensions. The smaller of the 2 lesions measures approximately 4.5 x 6.5 cm in axial dimensions and 5.7 cm in greatest coronal oblique dimension. There are 2 focal areas of mild wall thickening or additional mural septation within the larger cyst, see image 52 of series 203 and image 97 of series 201. Very mild wall thickening is seen at the junction of the 2 cystic lesions, see image 106 series 201. Lesion is contiguous with the right broad ligament and likely arises from the right ovary. No solid component is identified. There is a likely dominant left ovarian follicle or small follicular cyst measuring 3.1 x 3.3 cm in greatest transverse dimensions. Vasculature: No vascular abnormality is present. Bones: Bone windows demonstrate no suspicious lytic or blastic lesions. The visible osseous structures are intact. Soft tissues: Normal. Diagnosis: 2 right adnexal or ovarian cysts versus a septated right ovarian cyst with minimal wall thickening, as described. No solid nodule is seen. A left ovarian dominant follicle or small follicular cyst is present. Enlarged uterus with multiple uterine fibroids. Hepatosplenomegaly of uncertain significance. > Dictated by Deisy Ramirez MD (residential service technician). Edited by Delmi Lemon on 06/08/2023 12:57 PM IJhony MD have personally reviewed and interpreted this examination/study. > Interpreting Provider: Jhony Rowe MD on 06/08/2023 1:00 PM Procedure Note Jhony Rowe MD - 06/08/2023 PROCEDURE: CT OUTSIDE CONSULTATION, DATE/TIME OF EXAM: 06/08/2023 8:45AM, LOCATION [facility] INDICATION: N83.201: Unspecified ovarian cyst, right side ADDITIONAL CLINICAL INFORMATION: Ordering Provider Reason For Exam: Technologist Note: Additional: COMPARISON: None. TECHNIQUE: CT of the abdomen and pelvis was performed following the uneventful administration of 100 mL of Isovue 370 intravenous contrast according to standard protocol. Findings: Lower Chest: Normal. Liver: There is fatty enlargement of the liver. No focal hepatic lesion isseen. The hepatic and portal veins enhance normally. Gallbladder and Bile Ducts: Normal. Spleen: The spleen is enlarged and measures approximately 15.4 cm in coronal dimensions. No focal splenic lesion is seen. Pancreas: Normal. Adrenals: Normal. Kidneys: There is a hypodense lesion in the upper pole of the left kidneysuggesting a renal cyst. This has fluid attenuation on postcontrast imaging. The kidneys and visualized ureters and bladder are otherwise normal. Gastrointestinal: The stomach and visualized loops of large and small bowel areunremarkable. Normal appendix. Mesentery/Peritoneum/Retroperitoneum: Small periaortic retroperitoneal and pelvic lymph nodes are presentwithout significant adenopathy. There are small mesenteric cysts with mild soft tissue stranding in the root of the small bowel mesentery. Reproductive Organs: The uterus is enlarged and measures approximately 16.4 cm in sagittal dimensions and 11.7 cm in anterior posterior dimensions. There arecomplex and partially enhancing lesions within the left body of the uterus,lower uterine segment, as well as pedunculated subserosal fibroids. Thelargest of these measures approximately 7.6 x 9.3 cm. The endometrium appears grossly normal in appearance and thickness. Two right pelvic cystic structures versus a septated cystic lesion are present, the largest of the 2 measuring 17.1 x 11.5 cm in axialdimensions and 14.2 x 15.3 cm in coronal dimensions. The smaller of the 2 lesions measures approximately 4.5 x 6.5 cm in axial dimensions and 5.7 cm in greatest coronal oblique dimension. There are 2 focal areas of mild wall thickening or additional mural septation within the larger cyst, seeimage 52 of series 203 and image 97 of series 201. Very mild wall thickeningis seen at the junction of the 2 cystic lesions, see image 106 series 201. Lesion is contiguous with the right broad ligament and likely arisesfrom the right ovary. No solid component is identified. There is a likely dominant left ovarian follicle or small follicular cyst measuring 3.1 x3.3 cm in greatest transverse dimensions. Vasculature: No vascular abnormality is present. Bones: Bone windows demonstrate no suspicious lytic or blastic lesions. The visible osseous structures are intact. Soft tissues: Normal. Diagnosis: 2 right adnexal or ovarian cysts versus a septated right ovarian cystwith minimal wall thickening, as described. No solid nodule is seen. A left ovarian dominant follicle or small follicular cyst is present. Enlarged uterus with multiple uterine fibroids. Hepatosplenomegaly of uncertain significance. > Dictated by Deisy Ramirez MD (residential service technician). Edited by Delmi Lemon on 06/08/2023 12:57 PM I, Jhony Rowe MD have personally reviewed and interpreted this examination/study. > Interpreting Provider: Jhony Rowe MD on 06/08/2023 1:[address] Roldan MD CT ORDERABLES * CANCER ANTIGEN (CA) 19-9 (06/07/2023 8:57 PM HEALTH COMMUNICATIONS SPECIALIST) CA 19-9 3.9 <=35.0 U/mL 06/07/2023 9:34 PM [facility] Blood BLOOD SPECIMEN / Unknown Venipuncture / Unknown 06/07/2023 8:57 PM HEALTH COMMUNICATIONS SPECIALIST 06/07/2023 8:57 PM HEALTH COMMUNICATIONS SPECIALIST [facility] - 06/07/2023 9:34 PM HEALTH COMMUNICATIONS SPECIALIST Pimentel Alinishasha chemiluminescent microparticle immunoassay (CMIA) Values obtained with different assay methods or kits cannot be used interchangeably. Results cannot be interpreted as absolute evidence of the presence or absence of malignant disease. Belkis Blum MD LAB - CHEMISTRY O RDERABLES Performing Organization Address [facility] de Phone Number [facility] [address], [place] [id number] * CANCER ANTIGEN (CA)125 BLOOD (06/07/2023 8:57 PM HEALTH COMMUNICATIONS SPECIALIST) [facility] CA 125 34.9 Female: 0-35 U/mL U/mL 06/07/2023 9:34 PM HEALTH COMMUNICATIONS SPECIALIST [facility] Blood BLOOD SPECIMEN / Unknown Venipuncture / Unknown 06/07/2023 8:57 PM HEALTH COMMUNICATIONS SPECIALIST 06/07/2023 8:57 PM HEALTH COMMUNICATIONS SPECIALIST [facility]ORY - 06/07/2023 9:34 PM HEALTH COMMUNICATIONS SPECIALIST Incub[employer] chemiluminescent microparticle immunoassay (CMIA) Values obtained with different assay methods or kits cannot be used interchangeably. Results cannot be interpreted as absolute evidence of the presence or absence of malignant disease. Belkis Blum MD LAB - CHEMISTRY O KATT Performing Organization Address [facility] de Phone Number [facility] [address] [place] [phone] * (ABNORMAL) CBC W AUTO DIFFERENTIAL (06/07/2023 8:57 PM HEALTH COMMUNICATIONS SPECIALIST) [facility] WBC 9.0 4.0 - 10.7 x10E9/L 06/07/2023 9:00 PM [facility] RBC Count 5.39(H) 3.90 - 5.20 x10E12/L 06/07/2023 9:00 PM [facility] Hemoglobin 13.9 11.9 - 15.8 g/dL 06/07/2023 9:00 PM [facility] Hematocrit 43.2 34.8 - 46.1 % 06/07/2023 9:00 PM [facility] MCV 80.1 80.0 - 98.0 fL 06/07/2023 9:00 PM [facility] MCH 25.8(L) 26.7 - 33.6 pg 06/07/2023 9:00 PM [facility] MCHC 32.2 31.7 - 36.3 g/dL 06/07/2023 9:00 PM [facility] RDW-CV 14.1 11.3 - 14.8 % 06/07/2023 9:00 PM [facility] Platelet Count 271 150 - 420 x10E9/L 06/07/2023 9:00 PM [facility] MPV 9.6 7.8 - 11.4 fL 06/07/2023 9:00 PM [facility] Neutrophil % 74.0 41.0 - 74.0 % 06/07/2023 9:00 PM [facility] Lymphocyte % 19.3 17.0 - 47.0 % 06/07/2023 9:00 PM [facility] Monocyte % 4.3 3.0 - 11.0 % 06/07/2023 9:00 PM [facility] Eosinophil % 1.4 0.0 - 7.0 % 06/07/2023 9:00 PM [facility] Basophil % 0.7 0.0 - 1.6 % 06/07/2023 9:00 PM [facility] Immature Granulocytes % 0.3 0.0 - 1.0 % 06/07/2023 9:00 PM [facility] Neutrophil Absolute 6.65 1.60 - 7.50 x10E9/L 06/07/2023 9:00 PM [facility] Lymphocyte Absolute 1.74 1.00 - 4.40 x10E9/L 06/07/2023 9:00 PM [facility] Monocyte Absolute 0.39 0.15 - 1.00 x10E9/L 06/07/2023 9:00 PM [facility] Eosinophil Absolute 0.13 0.00 - 0.60 x10E9/L 06/07/2023 9:00 PM [facility] Basophil Absolute 0.06 0.00 - 0.13 x10E9/L 06/07/2023 9:00 PM [facility] Blood BLOOD SPECIMEN / Unknown Venipuncture / Unknown 06/07/2023 8:57 PM HEALTH COMMUNICATIONS SPECIALIST 06/07/2023 8:57 PM [facility] Belkis Blum MD LAB - HEMATOLOGY ORDERABLES ST. [facility] [address] [place] [address] * COMPREHENSIVE METABOLIC PANEL (06/07/2023 8:57 PM [facility]) [facility] Glucose 83 70 - 105 mg/dL 06/07/2023 9:16 PM [facility] Sodium 139 136 - 145 mmol/L 06/07/2023 9:16 PM [facility] Potassium 3.8 3.5 - 5.1 mmol/L 06/07/2023 9:16 PM [facility] Chloride 105 98 - 107 mmol/L 06/07/2023 9:16 PM [facility] CO2 23 22 - 29 mmol/L 06/07/2023 9:16 PM [facility] Calcium 9.1 8.4 - 10.4 mg/dL 06/07/2023 9:16 PM [facility] Anion Gap 11 6 - 16 mmol/L 06/07/2023 9:16 PM [facility] BUN 9 5.3 - 18.7 mg/dL 06/07/2023 9:16 PM [facility] Creatinine 0.77 0.57 - 1.11 mg/dL 06/07/2023 9:16 PM [facility] Alkaline Phosphatase 70 40 - 150 U/L 06/07/2023 9:16 PM [facility] ALT 22 0 - 55 U/L 06/07/2023 9:16 PM [facility] AST 20 5 - 34 U/L 06/07/2023 9:16 PM [facility] Protein Total 8.0 6.4 - 8.3 gm/dL 06/07/2023 9:16 PM [facility] Albumin 4.1 3.4 - 5.0 gm/dL 06/07/2023 9:16 PM [facility] Bilirubin Total 0.8 0.2 - 1.2 mg/dL 06/07/2023 9:16 PM [facility] eGFR by CKD-EPI >90 >=90 mL/min/1.7 3 m2 06/07/2023 9:16 PM [facility] Blood BLOOD SPECIMEN / Unknown Venipuncture / Unknown 06/07/2023 8:57 PM [facility]IST 06/07/2023 8:57 PM [facility] Belkis Blum MD LAB - CHEMISTRY O RDERABLES Performing Organization Address [facility] Co de Phone Number [facility] [address] [place], [place] [id number] * HCG BETA BLOOD QUANTITATIVE (06/07/2023 8:57 PM HEALTH COMMUNICATIONS SPECIALIST) hCG Quantitative <2.42 mIU/mL 06/07/19 9:19 PM HEALTH COMMUNICATIONS SPECIALIST [facility] Blood BLOOD SPECIMEN / Unknown Venipuncture / Unknown 06/07/2023 8:57 PM HEALTH COMMUNICATIONS SPECIALIST 06/07/2023 8:57 PM HEALTH COMMUNICATIONS SPECIALIST Narrative [facility] - 06/07/2023 9:19 PM HEALTH COMMUNICATIONS SPECIALIST hCG Reference Range, mIU/mL: Males 0-2.0 Non Females 0-6.0 Perimenopausal Females ages 41-55* 0-7.7 Postmenopausal Females age >55* 0-14 Females, Weeks after Last Menstrual Period 0.2-1 week 5-50 1 - 2 weeks 50-500 2 - 3 weeks 100-5000 3 - 4 weeks 500-10,000 4 - 5 weeks 1000-50,000 5 - 6 weeks 10,000-100,000 6 - 8 weeks 15,000-200,000 2 - 3 months 10,000-100,000 Trophoblastic Disease >100,000 *In higher than expected hCG in females > age 40, a serum FSH >20 IU/L makes unlikely. Belkis Blum MD LAB - CHEMISTRY O RDERABLES Performing Organization Address [facility] Co de Phone Number [facility] [address] [place] [id number] * CEA BLOOD (06/07/2023 8:56 PM HEALTH COMMUNICATIONS SPECIALIST) CEA <0.6 0.0 - 4.7 ng/mL 06/09/2023 2:11 PM HEALTH COMMUNICATIONS SPECIALIST [facility] ([facility]) Comment: Nonsmokers <3.9 Smokers <5.6 [facility] Electrochemiluminescence Immunoassay (ECLIA) Values obtained with different assay methods or kits cannot be used interchangeably. Results cannot be interpreted as absolute evidence of the presence or absence of malignant disease. Blood BLOOD SPECIMEN / Unknown Venipuncture / Unknown 06/07/2023 8:56 PM HEALTH COMMUNICATIONS SPECIALIST 06/07/2023 8:56 PM HEALTH COMMUNICATIONS SPECIALIST Narrative [facility] ([facility]) - 06/09/2023 2:11 PM HEALTH COMMUNICATIONS SPECIALIST Performed at: 01 - [address] [id number] Computer Graphic Designer: Shane Turner PhD, Phone: [phone] Belkis Blum MD LAB - CHEMISTRY O RDERABLES [facility] ([facility]) [address] [place] [address] Care Teams Truck Driving Instructor Relationship Specialty Start Date End Date Masha Shah MD [address] [place] [address] Dr. M[place]INA [place] [phone] PCP - General Family Medicine 06/29/23
[2024-06-11] MEDS: ACETAMINOPHEN 500 MG TABLET 1000 MG PO (06:45)
[2024-06-11] MEDS: LACTATED RINGERS 1,000 ML 30 ML IV CONT (06:45)
--- NOTE | 2024-06-11 07:21 | WPDHPUPDATE1 ---
History and Physical Update Update Date/Time: 06/11/24 07:21 History and Physical has been reviewed, including an updated exam of the patient. There are NO changes in the patient's condition. Risks, benefits, and alternatives have been discussed and questions answered. Patient agrees to proceed with procedure.
--- NOTE | 2024-06-11 07:21 | PM.HPGS ---
History of Present Illness History of Present Illness Consent: Risks, benefits, and alternatives have been discussed and questions answered. Patient agrees to proceed with procedure. Chief complaint: Menorrhagia Narrative: Masha Segal is a 44 year old female with heavy and irregular cycles. Pelvic ultrasound shows an enlarged uterus at 15cm with fibroids and possible adenomyosis. It was recommended to undergo D&C hysteroscopy for further evaluation. Risks of infection bleeding, perforation, and possible pathology are reviewed. Patient voices understanding and agrees to proceed. Review of Systems Review of Systems: not repeated day of surgery; patient states no changes in status [facility] Past Medical History Medical History (Updated 06/11/24 @ 07:25 by Fiorella Forde MD) PCOS (polycystic ovarian syndrome) History of spontaneous X3 (normal spontaneous vaginal delivery) Migraines Surgical History Surgical History (Updated 06/11/24 @ 07:25 by Fiorella Forde MD) History of hysteroscopy 2007 and 2016 History of right oophorectomy Exploratory laparotomy 18cm benign cyst History of tonsillectomy Social History Social History Years smoked: 1 Smoking status: Former smoker Tobacco type: cigarettes Second hand tobacco smoke exposure: No Substance use type: does not use Last use: 1998 Living arrangements: with family Spiritual care concerns: No Meds Home Medications and Allergies Home Medications ?Medication ?Instructions ?Recorded ?Confirmed ?Type cholecalciferol (vitamin D3) 25 1,000 unit PO DAILY 05/30/24 05/30/24 History mcg (1,000 unit) capsule (Vitamin D3) metformin 500 mg tablet 500 mg PO BID PCOS 05/30/24 05/30/24 History Allergies Allergy/AdvReac Type Severity Reaction Status Date / Time No Known Allergies Allergy Verified 05/30/24 13:01 Exam Const: General: alert and obese (BMI 45) Orientation/consciousness: patient oriented x3 Resp: Effort & Inspection: normal respiratory effort GI: GI Palp: Yes Soft to palpation, No Tenderness to palpation present (GI) and No Palpable mass present : External Female Exam: normal external appearance Speculum Exam - Vagina: normal appearance of the vagina and normal vaginal discharge Speculum Exam - Cervix: normal appearance of the cervix Bimanual exam- vagina & uterus: uterine size normal and consistency normal Bimanual Exam- Adnexa, other: normal adnexae and No adnexal tenderness Neuro: General: patient oriented x3 Assessment and Plan Assessment and plan (1) Menorrhagia: Code(s): N92.0 - Excessive and frequent menstruation with regular cycle Status: Acute Assessment and Plan: Plan to proceed with D&C hysteroscopy
[2024-06-11 07:32] VITALS: BMI 44.8
[2024-06-11 07:33] LABS: BEDSIDEPREGUCG Negative (Negative)
[2024-06-11 07:35] VITALS: BP 156/112; PULSE 87; TEMP 36.6; O2SAT 100
--- NOTE | 2024-06-11 08:02 | P.PNAN_ITS ---
Anes - Initial Pre Proc Eval Procedure: Operation Date: 06/11/24 08:15 Proposed Procedures p Hysteroscopy Dilation and Curettage - Fiorella Forde MD Date/Time: 06/11/24 08:02 Surgeon: Fiorella Forde MD Pre Op Diagnosis: Menorrhagia Patient Data Age: 44 Gender: F Height: 1.68 m Weight: 126 kg Last Vital Signs Temp 97.8 F 06/11/24 07:35 Pulse 87 06/11/24 07:35 BP 156/112 H 06/11/24 07:35 Pulse Ox 100 06/11/24 07:35 Allergies Allergy/AdvReac Type Severity Reaction Status Date / Time No Known Allergies Allergy Verified 06/11/24 07:30 Home Medications ?Medication ?Instructions ?Recorded ?Confirmed ?Type cholecalciferol (vitamin D3) 25 1,000 unit PO DAILY 05/30/24 05/30/24 History mcg (1,000 unit) capsule (Vitamin D3) metformin 500 mg tablet 500 mg PO BID PCOS 05/30/24 05/30/24 History Laboratory Tests 06/11/24 07:31 POC Urine HCG, Qual Negative (Negative) Patient hx anesthesia problems: none Family hx anesthesia problems: none Results Review: All pre-operative results and documents have been reviewed as part of the pre-operative evaluation. [facility] Past Medical History Medical History PCOS (polycystic ovarian syndrome) History of spontaneous X3 (normal spontaneous vaginal delivery) Migraines Surgical History Surgical History History of hysteroscopy 2007 and 2016 History of right oophorectomy Exploratory laparotomy 18cm benign cyst History of tonsillectomy Social History Social History Years smoked: 1 Smoking status: Former smoker Tobacco type: cigarettes Second hand tobacco smoke exposure: No Substance use type: does not use Last use: 1998 Living arrangements: with family Spiritual care concerns: No Anes - Eval Final PreProcedure Day of Procedure 06/11/24 08:02 Patient weight: morbidly obese Lungs: normal air movement Airway: Mallampati scale class III Neurological: alert and oriented Last oral intake: >/= 8 hours ASA classification: III Emergent: no Anesthetic plan: proceed Anesthesia type and monitoring: general GIVS and standard monitoring Results Review: All pre-operative results and documents have been reviewed as part of the pre- operative evaluation. BMI 44, suspect MODESTA, never had sleep study. PreDM/PCOS. Informed Consent: The patient's anesthetic plan and its attendant risks and benefits were discussed with the patient/family/POA. Questions were solicited and answers provided to the satisfaction of the patient/family/POA.
--- NOTE | 2024-06-11 08:44 | W.PM.PROC2 ---
Procedure Note - Detailed Date of Procedure 06/11/24 Pre-op Diagnosis Menorrhagia Post-op Diagnosis Same Procedure Performed D&C hysteroscopy with resection of polyp Surgeon Fiorella Forde MD Anesthesia MAC Findings Uterus is very anteverted. There is a large polyp on the left sidewall. There was evidence of adenomyosis in the right cornua. The uterus sounds to 12cm. Description of Procedure The patient is taken to the operating room and placed under anesthesia in the dorsal lithotomy position. She was prepped and draped in the usual sterile fashion. [place] speculum was placed in the vagina and the cervix grasped on the anterior lip with a tenaculum. There is stenosis encountered at 3cm. The os Finders are used and the internal os stenosis is able to be bypassed. The cervix is serially dilated to a 6 Hegar. Diagnostic hysteroscope was placed and through hydrodissection the cavity is entered. The camera upon entering the endometrial cavity is noted to be at a 90 degree angle to the floor. The uterus is very anteverted. There was a large polyp noted so the medium resection Aveta device is opened and placed. Under direct visualization the polyp was removed in its entirety. Due to the severe angle of the uterus, the resection device is used to biopsy the the endometrium in a back and forth pattern throughout. The hysteroscope was removed and the uterus is now able to be sounded to 12cm. The sharp curette was used to curette the endometrium until a good uterine cry was noted in all areas. Estimated Blood Loss 5 Drains No Packing No Pathology Yes (Endometrial curettings and shavings) Complications No immediate complications Condition Stable Disposition PACU
[2024-06-11 08:47] VITALS: BP 127/72; PULSE 87; RESP 14; O2SAT 96
[2024-06-11 09:00] VITALS: BP 148/98; PULSE 74; RESP 16; O2SAT 100
[2024-06-11] MEDS: ONDANSETRON INJ 4 MG/2 ML VIAL IV PUSH (09:10)
[2024-06-11] MEDS: oxyCODONE HCL (*CRX) 5 MG TAB IR PO (09:10)
[2024-06-11 09:30] VITALS: BP 142/87; PULSE 70; RESP 16
== END 2024-06-11 09:47 | disposition home or self-care (01) ==
PROVIDERS: Visit Provider Obstetrics & Gynecology Gynecology
PROC: 0U5B8ZZ Destruction of Endometrium, Via Natural or Artificial Opening Endoscopic (ICD-10-PCS; CPT 58563; principal; 2024-06-11 08:15)
DX: N92.0 Excessive and frequent menstruation with regular cycle (principal); N84.0 Polyp of corpus uteri; Z87.891 Personal history of nicotine dependence; E66.01 Morbid (severe) obesity due to excess calories; Z68.41 Body mass index [BMI] 40.0-44.9, adult
CPT/HCPCS: 58558; 88305; A9270; J1100; J2003; J2250; J2405; J2704; J3010; J7120

== ENCOUNTER 2024-08-13 01:05 | Day surgery (SDC) | payer BC, SELFPAY ==
[2024-08-08 08:47] VITALS: BMI 43.6
--- NOTE | 2024-08-08 08:52 | PC.NURSE ---
Report to the Outpatient Waiting Room, entrance under the green pavilion located off [facility], at time _0630_ on date _[id number]_. Planned Procedure Time: _0830_.? Time changes happen often and if your time is changed the preop area will call you the afternoon before. - You and your visitor will be asked to self-screen and do not enter if you have any COVID symptoms. Please call surgeon if you need to reschedule. - A mask is optional within the hospital at this time. Patients may have clear liquids (water, carbonated beverages, clear teas, apple juice) until 3 hours prior to surgery with a maximum of 20 ounces. - No food from midnight until time of surgery and no smoking, or chewing tobacco (or any form of nicotine). No chewing gum, candy or mints. Take only the following medications with a SIP of water on the morning of surgery: ___None____ DO NOT STOP ANY OF YOUR OTHER PRESCRIPTION MEDICATIONS PRIOR TO SURGERY EXCEPT THE FOLLOWING Hold all vitamins and supplements for 3 days per anesthesiologist. Medications to discontinue per physician Date to take last dose Please no make-up, nail maltese, hairspray, perfume, deodorant, or body powder the day of surgery.? No jewelry (including any body piercings) or valuables the day of surgery, leave them at home.? Please take a shower or bath the night before, or the morning of, surgery with an antibacterial soap.? Wear comfortable, loose fitting clothing.? - Jewelry must be removed prior to entering the operating room.? Rings and piercings that are not removed may be cut off. - The hospital will not accept responsibility for valuables.? - Please leave all valuables, including medications, at home the day of surgery. If you are going home after surgery, a licensed local hazmat driver must drive you home.? - NO public transportation without another adult if you receive anesthesia. - We recommend that an adult stay with you for 24 hours following discharge. - We also recommend that you do not drive, make important decision, drink alcoholic beverages, or take any drugs that were not prescribed by your health care provider for at least 24 hours after your discharge time. Follow any additional instructions given to you from your surgeon. Telephone instructions given to __Masha__and asked if any additional questions and then verbalized understanding. Patient advised to call surgeon office or pre surgery nurse liaison [phone] if any additional questions.
--- OUTSIDE RECORDS SUMMARY | 2024-08-13 01:08 | XMS_ITS | Encounter Summary ---
Author Organization [facility] Address [address] [place] [address] Care Team Providers Care Skilled Nursing Facility Counselor Name Role Phone Masha Shah MD Primary Care Provider [phone] Reason for Visit * Reason Onset Date Comments Post-Op 06/13/2023 Appointment 06/13/2023 Encounter Details Date Type Department Care Team (Late st Contact Info) Description 06/13/2023 Telephone [facility] IMPORT SPECIALIST [address] [place] [address] Lottie Mancera MD [address] [facility] [address] [place] [address] Post-Op; Appointment Social History Tobacco Use Types Packs/Day Years Used Date Smoking Tobacco: Never Assessed Comments Unknown Sex and Gender Information Value Date Recorded Sex Assigned at Not on file Legal Sex Female 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 Mancera. Pt had surgery on 06.10.23. TOSE LOADER documented in this encounter Plan of Treatment Not on file documented as of this encounter Visit Diagnoses Not on filedocumented in this encounter Care Teams Skilled Nursing Facility Counselor Relationship Specialty Start Date End Date Masha Shah MD [address] [place] Anand [phone] PCP - General Family Medicine 06/29/23 documented as of this encounter
--- OUTSIDE RECORDS SUMMARY | 2024-08-13 01:08 | XMS_ITS | Clinical Summary ---
Author Organization [facility] Address [address] [place] [address] Care Team Providers Care Emd Special Education Teacher Name Role Phone Masha Shah MD Primary Care Provider [phone] Source Comments [facility],non-owned Affiliates and Associated Physician Practices is amultiple site organization consisting of ambulatory clinics and hospital sitesin [place], [place], [place] and [place]. This disclosure is being madepursuant to the Care Everywhere program and may not contain all information available regarding this patient. Last updated 18.[facility] Allergies No known active allergies Medications * Be aware that medications may not be up to date on this document. Alwaysverify current medications with the patient. oxyCODONE, immediate release, (Roxicodone) 5 MG tabletIndicati ons:Right ovarian cyst Take 1 (one) tablet by mouth every 6 hours as needed 12 tablet 4 Active Additional Information Patient not taking.Reported on 06/29/2023 ketorolac (Toradol) 10 MG tablet Take 1 (one) tablet by mouth every 6 hours as needed for Pain 12 tablet 4 Active Additional Information Patient not taking.Reported on 06/29/2023 acetaminophen (Tylenol) 500 MG capsule Take 1 (one) capsule by mouth every 4 hours as needed for Fever or Pain 30 capsule 4 Active Additional Information Patient not taking.Reported on 06/29/2023 acetaminophen (Tylenol) 325 MG tablet Take 2 (two) tablets by mouth every 6 hours as needed for Fever or Pain Maximum allowable Acetaminophen amount = 4 Grams (4000 mg) / 24 hours. 40 tablet Active Additional Information Patient not taking.Reported on 06/29/2023 ibuprofen (Motrin) 600 MG tablet Take 1 (one) tablet by mouth every 6 hours as needed for Pain 40 tablet Active Additional Information Patient not taking.Reported on 06/29/2023 Active Problems Problem Noted Date Diagnosed Date Right ovarian cyst 06/07/2023 Social History Tobacco Use Types Packs/Day Years Used Date Smoking Tobacco: Unknown PHQ-2 Answer Date Recorded Patient Health Questionnaire-2 Score 0 06/22/2023 Comments Unknown Sex and Gender Information Value Date Recorded Sex Assigned at Not on file Legal Sex Female 4:30 PM [employer] Gender Identity Not on file Sexual Orientation Not on file Last Filed Vital Signs Vital Sign Reading Time Taken Comments Blood Pressure 120/80 06/29/2023 1:41 PM [employer] Pulse 74 06/10/2023 5:17 PM [employer] Temperature 36.8 C (98.2 F) 06/10/2023 1:55 PM [employer] Respiratory Rate 20 06/10/2023 4:10 PM [employer] Oxygen Saturation 98% 06/10/2023 5:17 PM [employer] Inhaled Oxygen Concentration - - Weight 123.4 kg (272 lb) 06/29/2023 1:41 PM [employer] Height 167.6 cm (5' 6 ) 06/29/2023 1:41 PM [employer] Body Mass Index 43.9 06/29/2023 1:41 PM [employer] Plan of Treatment Health Maintenance Due Date Last Done Comments LIPID TESTING 1980 MAMMOGRAM 1980 PAP SMEAR 1980 HIV SCREENING 01/24/1995 HEPATITIS C SCREENING 01/20/1998 DTAP/TDAP/TD VACCINES (1 - Tdap) 01/24/1999 HEPATITIS B VACCINE (1 of 3 - 19+ 3-dose series) 01/24/1999 COVID-19 VACCINE ( - 2023-2 5 season) 2024 DEPRESSION SCREENING 05/02/2024 06/29/2023 INFLUENZA VACCINE (Season Ended) 2024 SCREENING FOR DIABETES 06/07/2026 06/07/2023 ZOSTER VACCINE (1 of 2) 01/24/2030 HIB VACCINE Aged Out No longer eligi ble based on patient's age to complete this topic HPV VACCINE Aged Out No longer eligi ble based on patient's age to complete this topic MENINGOCOCCAL (Group B) VACC INE SHARED DECISION-MAKING Aged Out No longer eligibl e based on patient's age to complete this topic MENINGOCOCCAL GROUPS A/C/Y/W VACCINE Aged Out No longer eligible b ased on patient's age to complete this topic PNEUMOCOCCAL VACCINE Aged Out No long er eligible based on patient's age to complete this topic Procedures Procedure Name Priority Date/Time Associated Diagnosis Comments COMPREHENSIVE METABOLIC PANEL STAT 06/07/2023 8:57 PM [employer] from Last 3 Months or Most Recently Relevant to Health Maintenance Results * COMPREHENSIVE METABOLIC PANEL (06/07/2023 8:57 PM [employer]) Glucose 83 70 - 105 mg/dL 06/07/2023 9:16 PM [employer] [facility] Sodium 139 136 - 145 mmol/L 06/07/2023 9:16 PM [employer] [facility] Potassium 3.8 3.5 - 5.1 mmol/L 06/07/2023 9:16 PM [facility] Chloride 105 98 - 107 mmol/L 06/07/2023 9:16 PM [employer] [facility] CO2 23 22 - 29 mmol/L 06/07/2023 9:16 PM [facility] [employer] [facility] Calcium 9.1 8.4 - 10.4 mg/dL 06/07/2023 9:16 PM [employer] [facility] Anion Gap 11 6 - 16 mmol/L 06/07/2023 9:16 PM [employer] [employer] BUN 9 5.3 - 18.7 mg/dL 06/07/2023 9:16 PM [facility] [employer] [facility] Creatinine 0.77 0.57 - 1.11 mg/dL 06/07/2023 9:16 PM [employer] [employer] [facility] Alkaline Phosphatase 70 40 - 150 U/L 06/07/2023 9:16 PM [employer] [facility] ALT 22 0 - 55 U/L 06/07/2023 9:16 PM [employer] [employer] [facility] AST 20 5 - 34 U/L 06/07/2023 9:16 PM [facility] Protein Total 8.0 6.4 - 8.3 gm/dL 06/07/2023 9:16 PM [facility] Albumin 4.1 3.4 - 5.0 gm/dL 06/07/2023 9:16 PM [employer] [facility] Bilirubin Total 0.8 0.2 - 1.2 mg/dL 06/07/2023 9:16 PM [employer] [facility] eGFR by CKD-EPI >90 >=90 mL/min/1.7 3 m2 06/07/2023 9:16 PM [employer] [facility] Blood BLOOD SPECIMEN / Unknown Venipuncture / Unknown 06/07/2023 8:57 PM [employer] 06/07/2023 8:57 PM [employer] us Belkis Blum MD LAB - CHEMISTRY ORDERABLE S Final Result Performing Organization Address City/State/[facility] Co de Phone Number [facility] [address] [place] [address] from Last 3 Months or Most Recently Relevant to Health Maintenance Insurance DR [address] [place] [phone] SELF PAY NO INSURANCE Member Subscriber Plan / Payer (Ef fective for All Dates) Name:Masha Segal Member ID:Not on file Relation to Subscriber:Not on file Name:MASHA SEGAL Subscriber ID:Not on file (Home) Address: [address] [place] [address] [address] [place] [phone] Payer ID:Not on file Group ID:Not on file Type:Self Pay Address: [place], [place] Advance Directives * Full Code (Latest Code Status on File) Date Activated Date Inactivated Comments 06/08/2023 12:44 AM 06/08/2023 2:07 PM Care Teams Emd Special Education Teacher Relationship Specialty Start Date End Date Masha Shah MD [address] [place] [address] MATTHEW Anand [phone] PCP - General Family Medicine 06/29/23
--- OUTSIDE RECORDS SUMMARY | 2024-08-13 01:08 | XMS_ITS | Clinical Summary ---
Author Organization [facility] Address [address] [place] [address] Phone Care Team Providers Care Retail Inventory Control Clerk Name Role Phone Unavailable Primary Care Provider [...] Encounters Date Type Department Care Team Description 07/18/2024 External Device Data [facility] ABSTRACTION Provider, Abstract 07/17/2024 External Device Data [facility]STRACTION Provider, Abstract 07/10/2024 External Device Data [facility]STRACTION Provider, Abstract 07/10/2024 External Device Data [facility]STRACTION Provider, Abstract 07/03/2024 External Device Data [facility]STRACTION Provider, Abstract 06/12/2024 External Device Data [facility]STRACTION Provider, Abstract 06/12/2024 External Device Data [facility]STRACTION Provider, Abstract 06/12/2024 External Device Data [facility] ABSTRACTION Provider, Abstract 06/05/2024 External Device Data [facility] ABSTRACTION Provider, Abstract 05/24/2024 External Device Data [facility]STRACTION Provider, Abstract 05/15/2024 External Device Data [facility] ABSTRACTION Provider, Abstract 05/15/2024 External Device Data [facility] ABSTRACTION Provider, Abstract from Last 3 Months Social History Tobacco Use Types Packs/Day Years Used Date Smoking Tobacco: Never Assessed Feeling Safe Answer Date Recorded Are you in a relationship wi th someone who hurts you emotionally and/or physically? No 04/16/2024 Comments Unknown Sex and Gender Information Value Date Recorded Sex Assigned at Not on file Legal Sex Female 9:32 AM BALLOON DIP[employer] Gender Identity Not on file Sexual Orientation Not on file Last Filed Vital Signs Vital Sign Reading Time Taken Comments Blood Pressure 161/101 04/16/2024 9:45 AM BALLOON DIPPER Pulse 87 04/16/2024 9:45 AM BALLOON DIPPER Temperature 36.9 C (98.5 F) 04/16/2024 9:34 AM BALLOON DIPPER Respiratory Rate 20 04/16/2024 9:45 AM BALLOON DIPPER Oxygen Saturation 99% 04/16/2024 9:45 AM BALLOON DIPPER Inhaled Oxygen Concentration - - Weight 113.4 kg (250 lb) 04/16/2024 9:34 AM BALLOON DIPPER Height 167.6 cm (5' 6 ) 04/16/2024 9:34 AM BALLOON DIPPER Body Mass Index 40.35 04/16/2024 9:34 AM BALLOON DIPPER Plan of Treatment Health Maintenance Due Date Last Done Comments Pre-Diabetes and Diabetes Screening 1980 DTAP/TDAP/TD VACCINES (1 - Tdap) 01/24/1999 HEPATITIS B VACCINES (1 of 3 - 19+ 3-dose series) 01/24/1999 HPV/Cotest (21-29) 01/24/2001 CERVICAL CANCER SCREENING 01/24/2010 HPV/Cotest (30-65) 01/24/2010 PAP SMEAR 01/24/2010 BREAST CANCER SCREENING 2020 INFLUENZA VACCINE (#1) 2023 HPV VACCINES Aged Out No longer eligi ble based on patient's age to complete this topic Insurance [facility] [place] WALLS [address] [id number] [facility] [employer] ACCESS CHOICE
[2024-08-13 06:20] VITALS: BP 154/104; PULSE 90; RESP 16; TEMP 36.3; O2SAT 100; BMI 43.6
[2024-08-13] MEDS: ACETAMINOPHEN 500 MG TABLET 1000 MG PO (06:50)
[2024-08-13] MEDS: LACTATED RINGERS 1,000 ML 30 ML IV CONT (07:00)
--- NOTE | 2024-08-13 07:19 | WPDANESEPPF ---
Anes - Initial Pre Proc Eval Procedure: Operation Date: 08/13/24 08:30 Proposed Procedures p Hysteroscopy Dilation and Curettage - Fiorella Forde MD s Colposcopy with Endocervical Curettage - Fiorella Forde MD Date/Time: 08/13/24 07:19 Surgeon: Fiorella Forde MD Pre Op Diagnosis: Endometrial Necrosis Patient Data Age: 44 Gender: F Height: 1.68 m Weight: 122.7 kg Allergies Allergy/AdvReac Type Severity Reaction Status Date / Time No Known Allergies Allergy Verified 08/08/24 08:45 Home Medications ?Medication ?Instructions ?Recorded ?Confirmed ?Type metformin 500 mg tablet 500 mg PO BID PCOS 05/30/24 08/08/24 History ergocalciferol (vitamin D2) 1,250 1,250 mcg PO WEEKLY 08/08/24 08/08/24 History mcg (50,000 unit) capsule Patient hx anesthesia problems: none Family hx anesthesia problems: none Results Review: All pre-operative results and documents have been reviewed as part of the pre-operative evaluation. [facility] Past Medical History Medical History PCOS (polycystic ovarian syndrome) History of spontaneous X3 (normal spontaneous vaginal delivery) Migraines Surgical History Surgical History History of hysteroscopy 2007 and 2016 History of right oophorectomy Exploratory laparotomy 18cm benign cyst History of tonsillectomy Social History Social History Years smoked: 1 Smoking status: Never smoker Tobacco type: cigarettes Second hand tobacco smoke exposure: No Substance use type: does not use Last use: 1998 Living arrangements: with family Spiritual care concerns: No Anes - Eval Final PreProcedure Day of Procedure 08/13/24 07:19 Patient weight: morbidly obese Heart: regular rate and rhythm Lungs: clear to auscultation Airway: Mallampati scale class III Neurological: alert and oriented Last oral intake: >/= 8 hours ASA classification: III Emergent: no Anesthesia type and monitoring: general GIVS and standard monitoring Results Review: All pre-operative results and documents have been reviewed as part of the pre-operative evaluation. Informed Consent: The patient's anesthetic plan and its attendant risks and benefits were discussed with the patient/family/POA. Questions were solicited and answers provided to the satisfaction of the patient/family/POA.
--- NOTE | 2024-08-13 07:23 | P.HP_ITS ---
History of Present Illness History of Present Illness Consent: Risks, benefits, and alternatives have been discussed and questions answered. Patient agrees to proceed with procedure. Chief complaint: Endometrial Necrosis Narrative: Masha Segal is a 44 year old female status post D&C hysteroscopy June of 2024. Visually there was a very large polyp. The endometrium appeared grossly normal. Pathology showed a polyp and very focal area of necrosis. It was recommended to repeat sampling including endometrial, endocervical, and cervical. The plan is to proceed with hysteroscopy D&C with a colposcopy and endocervical curetting. Possible pathology was discussed. Patient voices understanding and agrees to proceed. Review of Systems Review of Systems: not repeated day of surgery; patient states no changes in status [facility] Past Medical History Medical History (Updated 08/13/24 @ 07:27 by Fiorella Forde MD) PCOS (polycystic ovarian syndrome) History of spontaneous X3 (normal spontaneous vaginal delivery) Migraines Surgical History Surgical History (Updated 08/13/24 @ 07:26 by Fiorella Forde MD) History of hysteroscopy 2007, 2016, and 2024 History of right oophorectomy Exploratory laparotomy 18cm benign cyst History of tonsillectomy Social History Social History Years smoked: 1 Smoking status: Never smoker Tobacco type: cigarettes Second hand tobacco smoke exposure: No Substance use type: does not use Last use: 1998 Living arrangements: with family Spiritual care concerns: No Meds Home Medications and Allergies Home Medications ?Medication ?Instructions ?Recorded ?Confirmed ?Type metformin 500 mg tablet 500 mg PO BID PCOS 05/30/24 08/08/24 History ergocalciferol (vitamin D2) 1,250 1,250 mcg PO WEEKLY 08/08/24 08/08/24 History mcg (50,000 unit) capsule Allergies Allergy/AdvReac Type Severity Reaction Status Date / Time No Known Allergies Allergy Verified 08/13/24 07:27 Exam Const: General: healthy appearing and alert Orientation/consciousness: patient oriented x3 Resp: Effort & Inspection: normal respiratory effort : External Female Exam: normal external appearance Speculum Exam - Vagina: normal appearance of the vagina and normal vaginal discharge Speculum Exam - Cervix: normal appearance of the cervix Bimanual exam- vagina & uterus: uterine size normal and consistency normal Bimanual Exam- Adnexa, other: normal adnexae and No adnexal tenderness Neuro: General: patient oriented x3 Assessment and Plan Assessment and plan (1) Necrosis: Code(s): I96 - Gangrene, not elsewhere classified Status: Acute Assessment and Plan: Very focal necrosis found on pathology D&C hysteroscopy specimen June 11, 2024. Plan is to proceed with repeat hysteroscopy D&C as well as sampling of the endometrium and a colposcopy to rule out any abnormal pathology.
--- NOTE | 2024-08-13 07:23 | WPDHPUPDATE1 ---
History and Physical Update Update Date/Time: 08/13/24 07:23 History and Physical has been reviewed, including an updated exam of the patient. There are NO changes in the patient's condition. Risks, benefits, and alternatives have been discussed and questions answered. Patient agrees to proceed with procedure.
[2024-08-13 07:35] LABS: BEDSIDEPREGUCG Negative (Negative)
[2024-08-13 09:07] VITALS: BP 134/78; PULSE 86; RESP 16; O2SAT 92
--- NOTE | 2024-08-13 09:09 | W.PM.PROC2 ---
Procedure Note - Detailed Date of Procedure 08/13/24 Pre-op Diagnosis Endometrial Necrosis Post-op Diagnosis Same Procedure Performed Colposcopy with endocervical curettings Hysteroscopy D&C Surgeon Fiorella Forde MD Anesthesia MAC Findings Colposcopy reveals no cervical lesions. The endocervix and endometrium appear grossly normal. Description of Procedure The patient is taken to the operating room and placed under anesthesia in the dorsal lithotomy position. She was externally prepped and draped in the usual sterile fashion. [place] speculum was placed in the vagina and the cervix is bathed with ascetic acid. The cervix is inspected with the microscope under normal and green light with no lesions noted. The endocervical curetting is taken without difficulty. The cervix is prepped with Betadine. The hysteroscope was placed and no abnormalities are noted. The hysteroscope was removed. The endometrium was curetted in a sharp manner until a good uterine cry was noted in all areas. All instruments were then removed. Sponge, needle, and instrument counts are correct per the OR staff. Estimated Blood Loss 5 Drains No Packing No Pathology Yes (Endocervical and endometrial curettings) Complications No immediate complications Condition Stable Disposition PACU
[2024-08-13 09:35] VITALS: BP 143/86; PULSE 80
== END 2024-08-13 09:55 | disposition home or self-care (01) ==
PROVIDERS: Visit Provider Obstetrics & Gynecology Gynecology
PROC: 0U5B8ZZ Destruction of Endometrium, Via Natural or Artificial Opening Endoscopic (ICD-10-PCS; CPT 58563; principal; 2024-08-13 08:30)
PROC: 0UJH8ZZ Inspection of Vagina and Cul-de-sac, Via Natural or Artificial Opening Endoscopic (ICD-10-PCS; CPT 58558; 2024-08-13 08:30)
DX: N72 Inflammatory disease of cervix uteri (principal); E28.2 Polycystic ovarian syndrome; E66.01 Morbid (severe) obesity due to excess calories; Z68.41 Body mass index [BMI] 40.0-44.9, adult; Z98.890 Other specified postprocedural states; Z79.84 Long term (current) use of oral hypoglycemic drugs
CPT/HCPCS: 58558; 57456; 88305; A9270; J1100; J2003; J2250; J2405; J2704; J3010; J7120